=== PATIENT | male | born 1985 | race Caucasian/White ===

== ENCOUNTER 2017-11-22 08:33 | Day surgery (SDC) | payer BC ==
[~2017-11-22 08:33] MED LIST: Aloe Vera/Sodium Chloride Gel 14.1 GM Tube ONE; Bupivacaine 25%/EPINEPHrine/PF 30 ML ONE; Lactated Ringers 1,000 ML IV SCH; Lidocaine 1% 20 ML MDV ONE; Oxymetazoline 0.05% Nasal Spray 15 ML Bottle ONE
--- NOTE | 2017-11-22 09:10 | PCM.PREANE ---
Preanesthetic Assessment - Anesthesia/Transfusion/Family Hx Anesthesia History: No Prior Anesthesia Family History of Anesthesia Reaction: No Transfusion History: No Prior Transfusion(s) - Review of Systems General: No Symptoms Pulmonary: No Symptoms Cardiovascular: No Symptoms Gastrointestinal: No Symptoms Neurological: No Symptoms Other: Reports: None - Physical Assessment NPO Status Date: 11/21/17 Height: 1.75 m Weight: 103.419 kg ASA Class: 2 Mental Status: Alert & Oriented x3 Airway Class: Mallampati = 1 Dentition: Reports: Normal Dentition ROM/Head Extension: Full Lungs: Clear to Auscultation, Normal Respiratory Effort Cardiovascular: Regular Rate, Regular Rhythm - Allergies Allergies/Adverse Reactions: Allergies Allergy/AdvReac Type Severity Reaction Status Date / Time tetanus toxoid, adsorbed Allergy Swelling Verified 11/21/17 13:49 - Blood Blood Available: Yes - Anesthesia Plan Pre-Op Medication Ordered: None - Acknowledgements Anesthesia Type Planned: General Anesthesia Pt an Appropriate Candidate for the Planned Anesthesia: Yes Alternatives and Risks of Anesthesia Discussed w Pt/Guardian: Yes Pt/Guardian Understands and Agrees with Anesthesia Plan: Yes PreAnesthesia Questionnaire HEENT History: Reports: Allergic Rhinitis Gastrointestinal History: Reports: GERD Other Gastrointestinal History: not for the last year Musculoskeletal History: Reports: Arthritis, Fracture Other Musculoskeletal History: hx of fx toe Endocrine/Metabolic History: Reports: Obesity/BMI 30+ - Past Surgical History GI Surgical History: Reports: None - SUBSTANCE USE Smoking Status *Q: Never Smoker Recreational Drug Use History: No - HOME MEDS Home Medications: Home Meds . [No Known Home Meds] 11/21/17 [History] - CURRENT (IN HOUSE) MEDS Current Meds: Current Medications Lactated Ringer's (Ringers, Lactated) 1,000 mls @ 100 mls/hr IV ASDIRECTED NANCY Discontinued Medications Bupivacaine HCl/Epinephrine Bitart (Sensorc Mpf 0.25%-Epi 1:[id number]) Confirm Administered Dose 30 mls @ as directed .ROUTE .STK-MED ONE Stop: 11/22/17 07:16 Lidocaine HCl (Xylocaine 1%) Confirm Administered Dose 20 ml .ROUTE .STK-MED ONE Stop: 11/22/17 07:16 Oxymetazoline HCl (Afrin Original 0.05% Nasal [place]) Confirm Administered Dose 15 ml .ROUTE .STK-MED ONE Stop: 11/22/17 07:15 Sodium Chloride ([place] Saline Nasal Gel) Confirm Administered Dose 14.1 gm .ROUTE .[facility] ONE Stop: 11/22/17 07:16
[2017-11-22] MEDS ORDERED: fentaNYL 250 MCG/5 ML SDV ONE (09:51)
[2017-11-22] MEDS ORDERED: Midazolam 1 MG/ML 2 ML SDV ONE (09:51)
[2017-11-22] MEDS ORDERED: Propofol 200 MG/20 ML SDV ONE ×3 (09:52→10:01)
[2017-11-22] MEDS ORDERED: Dexamethasone 4 MG/ML 5 ML MDV ONE (09:54)
[2017-11-22] MEDS ORDERED: Rocuronium 10 MG/ML 10 ML Syringe ONE (09:54)
[2017-11-22] MEDS ORDERED: Phenylephrine/Normal Saline 100 MCG/ML 10 ML Syringe ONE (09:54)
[2017-11-22] MEDS ORDERED: Ondansetron 4 MG/2 ML SDV ONE (09:54)
--- NOTE | 2017-11-22 10:39 | PCM.HPR ---
H & P Addendum review - H & P Addendum Review Date of Original H & P: 10/24/17 Date Reviewed: 11/22/17 Time Reviewed: 10:25 Patient was Examined: No Changes
[2017-11-22] MEDS ORDERED: Sugammadex Sodium 200 MG/2 ML VIAL ONE (11:39)
[2017-11-22] MEDS ORDERED: HYDROmorphone 2 MG/ML SDV IVPUSH ONE (12:02)
[2017-11-22] MEDS ORDERED: Acetaminophen 325 MG Tab PO PRN (12:24)
[2017-11-22] MEDS ORDERED: Ibuprofen 800 MG Tab PO PRN (12:24)
--- NOTE | 2017-11-22 12:37 | PCM.OPNOTE ---
- General Post-Op/Procedure Note Date of Surgery/Procedure: 11/22/17 Operative Procedure(s): Uvulectomy [ CPT 68649] ,coblation reduction of manjit infreior turbinates [CPT 68050] Findings: Manjit inferior tubinates hypertrophied; nasal mucosa congested ++; elongated uvula ++ Pre Op Diagnosis: elongated uvula, hypertrophy of inferior turbinates, rhinitis Post-Op Diagnosis: Same Anesthesia Technique: General ET Tube Primary Surgeon: Kirstin Moreno Anesthesia Provider: Michael Snow EBL in mLs: 10 Condition: Good Free Text/Narrative:: Intake & Output 11/21/17 11/22/17 11/22/17 22:59 06:59 14:59 Intake Total 1100 Balance 1100 An informed consent was obtained. A time out was performed and the patient was brought back to the operating room. Gen. anesthesia was administered with an endotracheal tube. Patient was appropriately positioned on the operating table. An appropriately sized Ana Kieran mouth gag was positioned and suspended with a Colindres stand. The base of Uvula was infiltraed with 0.25% of Marcaine w 1: 100 000 epinephrine - 1 m was used. With a needle point bovie at a setting of 15W uvula was excised leaving a few mm at the base. hemostasis was achieved. Mucosa was sutured with 3.0 vicryl. Turbinate reduction was then performed. A 0 degree rigid nasal endoscope was used to examine bilateral nasal cavities and photo documentation was obtained. Bilateral inferior turbinates were infilatrated with 1% lidocaine - 2 mls were injected on each side. The left inferior turbinate was addressed first. A reflex 45 coblation wand with tip dipped in AYR Gel was used at setting of 6 :2 for Coblation and coagulation respectively. The point of entry was coagulated and wand was inserted till the third marking. Three lopez were created in the single channel. The inferior turbinate was visibly shrunk. Similar procedure was repeated on the right side with visible reduction in size of turbinates. Bilateral nasal cavities were then packed with oxymetazoline 0.05% soaked cottonoid pledgets. After an appropriate period of decongestion the pledgets were removed and hemostasis was achieved. Bacitracin oint was applied. Patient was handed over to anesthesia for recovery.
== END 2017-11-22 13:35 | disposition home or self-care (01) ==
LOC: MW.SDS 08:33
PROVIDERS: ATTEND Otolaryngology
DX: J34.3 Hypertrophy of nasal turbinates (principal); Q38.5 Congenital malformations of palate, not elsewhere classified; J30.9 Allergic rhinitis, unspecified; M19.90 Unspecified osteoarthritis, unspecified site; E66.9 Obesity, unspecified; J34.2 Deviated nasal septum; K21.9 Gastro-esophageal reflux disease without esophagitis; Z91.09 Other allergy status, other than to drugs and biological substances; Z68.33 Body mass index [BMI] 33.0-33.9, adult; Z88.7 Allergy status to serum and vaccine
CPT/HCPCS: 88304; A9270-GY; J1100; J2250; J2405; J2704; J3010; J3490; J7120

== ENCOUNTER 2019-04-02 17:25 | Emergency (ER) | payer BC ==
--- NOTE | 2019-04-02 17:36 | EDM.PDOC ---
ED HPI GENERAL MEDICAL PROBLEM - General Chief Complaint: Abdominal Pain Stated Complaint: STOMACH PAIN Time Seen by Provider: 04/02/19 17:33 Source of Information: Reports: Patient History Limitations: Reports: No Limitations - History of Present Illness INITIAL COMMENTS - FREE TEXT/NARRATIVE: HISTORY AND PHYSICAL: History of present illness: Patient is a 33-year-old male who presents to the emergency room with complaints of epigastric and right upper quadrant abdominal pain. He states over the past several months he has noticed upper abdominal pain after greasy high-fat foods. He states it will last for approximately 24 hours and resolve on its own. He is concerned he has "gallbladder issues" although has never been formally diagnosed or evaluated for this concern. He states he had moderate to severe pain prior to arrival but states it has "calm down now". Patient denies any fever, chills, headache, change in vision, syncope or near syncope. Denies any chest pain, back pain, shortness of breath or cough. Denies any nausea, vomiting, diarrhea, constipation or dysuria. Has not noted any blood in urine or stool. Patient has been eating and drinking appropriately. Review of systems: As per history of present illness and below otherwise all systems reviewed and negative. Past medical history: As per history of present illness and as reviewed below otherwise noncontributory. Surgical history: As per history of present illness and as reviewed below otherwise noncontributory. Social history: See social history for further information Family history: As per history of present illness and as reviewed below otherwise noncontributory. Physical exam: General: Well-developed and well-nourished 33-year-old male. Alert and oriented. Nontoxic appearing and in no acute distress. HEENT: Atraumatic, normocephalic, pupils equal and reactive bilaterally, negative for conjunctival pallor or scleral icterus, mucous membranes moist, TMs normal bilaterally, throat clear, neck supple, nontender, trachea midline. No drooling or trismus noted. No meningeal signs. No hot potato voice noted. Lungs: Clear to auscultation, breath sounds equal bilaterally, chest nontender. Heart: S1S2, regular rate and rhythm without overt murmur Abdomen: Soft, nondistended, nontender. Negative for masses or hepatosplenomegaly. Negative for costovertebral tenderness. Pelvis: Stable nontender. Skin: Intact, warm, dry. No lesions or rashes noted. Extremities: Atraumatic, moves all extremities per self without difficulty or deficits, negative for cords or calf pain. Neurovascular unremarkable. Neuro: Awake, alert, oriented. Cranial nerves II through XII unremarkable. Cerebellum unremarkable. Motor and sensory unremarkable throughout. Exam nonfocal. Notes: Lab work is unremarkable. Ultrasound of the gallbladder and epigastric/right upper quadrant is within normal limits. I did discuss with patient that he needs to follow-up with the general surgeon for further evaluation and management. Supportive care measures were reviewed and discussed. Voices understanding and is agreeable to plan of care. Denies any further questions or concerns at this time. Diagnostics: CBC, CMP, UA, Lipase Therapeutics: NS Prescription: None Impression: Abdominal Pain, epigastric Plan: 1. Your lab work and ultrasound are normal. Adhere to a low fat diet (avoiding fast food/greasy foods/high fat diary etc...) 2. Tylenol and/or ibuprofen as needed for pain management. 3. Follow-up with general surgeon for further care and management. Return to the ED as needed and as discussed. Definitive disposition and diagnosis as appropriate pending reevaluation and review of above. - Related Data Allergies Allergy/AdvReac Type Severity Reaction Status Date / Time tetanus toxoid, adsorbed Allergy Swelling Verified 04/02/19 17:56 Home Meds: Home Meds . [No Known Home Meds] 11/21/17 [History] Past Medical History HEENT History: Reports: Allergic Rhinitis Gastrointestinal History: Reports: GERD Other Gastrointestinal History: not for the last year Musculoskeletal History: Reports: Arthritis, Fracture Other Musculoskeletal History: hx of fx toe Endocrine/Metabolic History: Reports: Obesity/BMI 30+ - Past Surgical History GI Surgical History: Reports: None ED ROS GENERAL - Review of Systems Review Of Systems: ROS reveals no pertinent complaints other than HPI. ED EXAM, RENAL/ - Physical Exam Exam: See Below (See dictation) Course - Vital Signs Last Recorded V/S: Last Vital Signs Temp 98.0 F 04/02/19 17:55 Pulse 77 04/02/19 17:55 Resp 18 04/02/19 17:55 BP 136/85 04/02/19 17:55 Pulse Ox 97 04/02/19 17:55 - Orders/Labs/Meds Orders: Active Orders 24 hr Category Date Time Status Sodium Chloride 0.9% [Saline Flush] Med 04/02/19 17:37 Active 10 ml FLUSH ASDIRECTED PRN Sodium Chloride 0.9% [Saline Flush] Med 04/02/19 17:37 Active 2.5 ml FLUSH ASDIRECTED PRN Saline Lock Insert [OM.PC] Stat Oth 04/02/19 17:37 Ordered Medication Orders Sodium Chloride (Saline Flush) 10 ml FLUSH ASDIRECTED PRN PRN Reason: Keep Vein Open Sodium Chloride (Saline Flush) 2.5 ml FLUSH ASDIRECTED PRN PRN Reason: Keep Vein Open Labs: Laboratory Tests 04/02/19 04/02/19 Range/Units 18:15 18:15 WBC 7.61 (4.0-11.0) K/uL RBC 4.87 (4.50-5.90) M/uL Hgb 15.3 (13.0-17.0) g/dL Hct 42.6 (38.0-50.0) % MCV 87.5 (80.0-98.0) fL MCH 31.4 (27.0-32.0) pg MCHC 35.9 (31.0-37.0) g/dL RDW Std Deviation 39.9 (28.0-62.0) fl RDW Coeff of Aditi 12 (11.0-15.0) % Plt Count 231 (150-400) K/uL MPV 10.50 (7.40-12.00) fL Neut % (Auto) 43.4 L (48.0-80.0) % Lymph % (Auto) 33.6 (16.0-40.0) % [place] % (Auto) 6.0 (0.0-15.0) % Eos % (Auto) 16.6 H (0.0-7.0) % Baso % (Auto) 0.4 (0.0-1.5) % Neut # (Auto) 3.3 (1.4-5.7) K/uL Lymph # (Auto) 2.6 H (0.6-2.4) K/uL [place] # (Auto) 0.5 (0.0-0.8) K/uL Eos # (Auto) 1.3 H (0.0-0.7) K/uL Baso # (Auto) 0.0 (0.0-0.1) K/uL Nucleated RBC % 0.0 /100WBC Nucleated RBCs # 0 K/uL Sodium 143 (136-148) mmol/L Potassium 3.9 (3.5-5.1) mmol/L Chloride 105 (98-107) mmol/L Carbon Dioxide 25.9 (21.0-32.0) mmol/L BUN 12 (7.0-18.0) mg/dL Creatinine 1.1 (0.8-1.3) mg/dL Est Cr Clr Drug Dosing 93.73 mL/min Estimated GFR (MDRD) > 60.0 ml/min Glucose 85 (74-106) mg/dL Calcium 9.2 (8.5-10.1) mg/dL Total Bilirubin 0.6 (0.2-1.0) mg/dL AST 23 (15-37) IU/L ALT 43 (14-63) IU/L Alkaline Phosphatase 81 (46-116) U/L Total Protein 8.1 (6.4-8.2) g/dL Albumin 4.3 (3.4-5.0) g/dL Globulin 3.8 (2.6-4.0) g/dL Albumin/Globulin Ratio 1.1 (0.9-1.6) Lipase 108 (73-393) U/L Meds: Medications Generic Name Dose Route Start Last Admin Trade Name Fiona PRN Reason Stop Dose Admin Sodium Chloride 10 ml 04/02/19 17:37 Saline Flush FLUSH ASDIRECTED PRN Keep Vein Open Sodium Chloride 2.5 ml 04/02/19 17:37 Saline Flush FLUSH ASDIRECTED PRN Keep Vein Open Discontinued Medications Generic Name Dose Route Start Last Admin Trade Name Frebaron PRN Reason Stop Dose Admin Sodium Chloride 1,000 mls @ 999 mls/hr 04/02/19 17:37 04/02/19 18:19 Normal Saline IV 04/02/19 18:37 999 mls/hr STAT ONE Administration Departure - Departure Time of Disposition: 19:00 Disposition: Home, Self-Care 01 Clinical Impression: Abdominal pain Qualifiers: Abdominal location: epigastric Qualified Code(s): R10.13 - Epigastric pain - Discharge Information Instructions: Abdominal Pain, Adult, [id number] Referrals: PCP,Unknown [Primary Care Provider] - Forms: ED Department Discharge Additional Instructions: The following information is given to patients seen in the emergency department who are being discharged to home. This information is to outline your options for follow-up care. We provide all patients seen in our emergency department with a follow-up referral. The need for follow-up, as well as the timing and circumstances, are variable depending upon the specifics of your emergency department visit. If you don't have a primary care physician on staff, we will provide you with a referral. We always advise you to contact your personal physician following an emergency department visit to inform them of the circumstance of the visit and for follow-up with them and/or the need for any referrals to a consulting specialist. The emergency department will also refer you to a specialist when appropriate. This referral assures that you have the opportunity for follow-up care with a specialist. All of these measure are taken in an effort to provide you with optimal care, which includes your follow-up. Under all circumstances we always encourage you to contact your private physician who remains a resource for coordinating your care. When calling for follow-up care, please make the office aware that this follow-up is from your recent emergency room visit. If for any reason you are refused follow-up, please contact the [facility] Emergency Department at and asked to speak to the emergency department charge nurse. [facility] [address] [place] [address] [address] [facility] - General Surgery Professional Building [address] [place] [address], [address] [place] [address] 1. Adhere to a low fat diet (avoiding fast food/greasy foods/high fat diary etc...) 2. Tylenol and/or ibuprofen as needed for pain management. 3. Follow-up with general surgeon for further care and management. Return to the ED as needed and as discussed. - My Orders Last 24 Hours: My Active Orders 04/02/19 17:37 Sodium Chloride 0.9% [Saline Flush] 10 ml FLUSH ASDIRECTED PRN Sodium Chloride 0.9% [Saline Flush] 2.5 ml FLUSH ASDIRECTED PRN Saline Lock Insert [OM.PC] Stat - Assessment/Plan Last 24 Hours: My Active Orders 04/02/19 17:37 Sodium Chloride 0.9% [Saline Flush] 10 ml FLUSH ASDIRECTED PRN Sodium Chloride 0.9% [Saline Flush] 2.5 ml FLUSH ASDIRECTED PRN Saline Lock Insert [OM.PC] Stat
[2019-04-02] MEDS ORDERED: Sodium Chloride 0.9% 10 ML Syringe FLUSH PRN (17:37)
[2019-04-02] MEDS ORDERED: Sodium Chloride 0.9% 1,000 ML IV ONE (17:37)
[2019-04-02] MEDS ORDERED: Sodium Chloride 0.9% 2.5 ML Syringe FLUSH PRN (17:37)
[2019-04-02 18:49] LABS: BLOOD UREA NITROGEN,BUN 12 mg/dL (7.0-18.0); CARBON DIOXIDE,CO2 25.9 mmol/L (21.0-32.0); CHLORIDE,CL 105 mmol/L (98-107); GLUCOSE RANDOM 85 mg/dL (74-106); LIPASE 108 U/L (73-393); POTASSIUM,K 3.9 mmol/L (3.5-5.1); SODIUM,NA 143 mmol/L (136-148)
--- NOTE | 2019-04-02 18:55 | US ---
INDICATION: Right upper quadrant pain for a few years, worse over 2 months TECHNIQUE: Ultrasound abdomen limited. Sonographic images of the right upper quadrant were obtained using levin-scale and color Doppler images. COMPARISON: None FINDINGS: Liver: The liver parenchyma is normal in echotexture. Gallbladder: No gallstones or sludge seen in the contracted lumen. The gallbladder wall is normal in appearance. No pericholecystic fluid is present. No sonographic [place] sign is present. Common bile duct: 3 mm. No intrahepatic biliary ductal dilatation seen. Pancreas: The visualized portions of the pancreatic head and body are normal in appearance. Right Kidney: 10 cm. No hydronephrosis or ureterectasis is seen. Vascular: Proximal abdominal aorta and IVC are normal in caliber. IMPRESSION: 1. The gallbladder is contracted and difficult to evaluate. Dictated by Dale Angulo MD @ 04/02/2019 6:53:19 PM Dictated by: Dale Angulo MD @ 04/02/2019 18:53:24 (Electronically Signed)
== END 2019-04-02 19:15 | disposition home or self-care (01) ==
LOC: MW.ED 17:25
DX: R10.13 Epigastric pain (principal); R10.11 Right upper quadrant pain; E66.9 Obesity, unspecified; Z68.34 Body mass index [BMI] 34.0-34.9, adult; Z88.7 Allergy status to serum and vaccine
CPT/HCPCS: 76705; 80053; 83690; 85025; 96360; 99284; J7040

== ENCOUNTER 2019-04-29 09:06 | Day surgery (SDC) | payer BC ==
[~2019-04-29 09:06] MED LIST changes: -Aloe Vera/Sodium Chloride Gel 14.1 GM Tube ONE; -Bupivacaine 25%/EPINEPHrine/PF 30 ML ONE; -Lidocaine 1% 20 ML MDV ONE; +Lidocaine 2% 5 ML SDV ONE; +Midazolam 1 MG/ML 2 ML SDV ONE; -Oxymetazoline 0.05% Nasal Spray 15 ML Bottle ONE; +Propofol 200 MG/20 ML SDV ONE; +fentaNYL 100 MCG/2 ML SDV ONE
--- NOTE | 2019-04-29 09:43 | PCM.PREANE ---
Preanesthetic Assessment - Anesthesia/Transfusion/Family Hx Anesthesia History: Prior Anesthesia Without Reaction Family History of Anesthesia Reaction: No Transfusion History: No Prior Transfusion(s) - Review of Systems General: No Symptoms Pulmonary: No Symptoms Cardiovascular: No Symptoms Gastrointestinal: No Symptoms Neurological: No Symptoms Other: Reports: None - Physical Assessment NPO Status Date: 04/28/19 Vital Signs: Last Vital Signs Temp 98.6 F 04/29/19 09:15 Pulse 68 04/29/19 09:15 Resp 16 04/29/19 09:15 BP 135/82 04/29/19 09:15 Pulse Ox 96 04/29/19 09:15 Height: 5 ft 9 in Weight: 106.594 kg ASA Class: 2 Mental Status: Alert & Oriented x3 Airway Class: Mallampati = 2 Dentition: Reports: Normal Dentition Thyro-Mental Finger Breadths: 3 Mouth Opening Finger Breadths: 3 ROM/Head Extension: Full Lungs: Clear to Auscultation, Normal Respiratory Effort Cardiovascular: Regular Rate, Regular Rhythm - Allergies Allergies/Adverse Reactions: Allergies Allergy/AdvReac Type Severity Reaction Status Date / Time tetanus toxoid, adsorbed Allergy Swelling Verified 04/25/19 16:19 - Acknowledgements Anesthesia Type Planned: MAC Pt an Appropriate Candidate for the Planned Anesthesia: Yes Alternatives and Risks of Anesthesia Discussed w Pt/Guardian: Yes Pt/Guardian Understands and Agrees with Anesthesia Plan: Yes PreAnesthesia Questionnaire HEENT History: Reports: Allergic Rhinitis, Other (See Below) Other HEENT History: wears glasses Cardiovascular History: Reports: None Respiratory History: Reports: None Gastrointestinal History: Reports: GERD Other Gastrointestinal History: not for the last year Genitourinary History: Reports: None Musculoskeletal History: Reports: Arthritis, Fracture Other Musculoskeletal History: hx of fx toe Neurological History: Reports: None Psychiatric History: Reports: None Endocrine/Metabolic History: Reports: Obesity/BMI 30+ Hematologic History: Reports: None Immunologic History: Reports: None Oncologic (Cancer) History: Reports: None Dermatologic History: Reports: None - Infectious Disease History Infectious Disease History: Reports: None - Past Surgical History Head Surgeries/Procedures: Reports: None HEENT Surgical History: Reports: Naso-Sinus Surgery (Turbinate reduction) Other HEENT Surgeries/Procedures: uvulectomy Cardiovascular Surgical History: Reports: None Respiratory Surgical History: Reports: None GI Surgical History: Reports: None Male Surgical History: Reports: None Endocrine Surgical History: Reports: None Neurological Surgical History: Reports: None Musculoskeletal Surgical History: Reports: None Oncologic Surgical History: Reports: None Dermatological Surgical History: Reports: None - SUBSTANCE USE Smoking Status *Q: Never Smoker Recreational Drug Use History: No - HOME MEDS Home Medications: Home Meds . [No Known Home Meds] 11/21/17 [History] - CURRENT (IN HOUSE) MEDS Current Meds: Current Medications Lactated Ringer's (Ringers, Lactated) 1,000 mls @ 125 mls/hr IV ASDIRECTED NANCY Discontinued Medications Fentanyl (Sublimaze) Confirm Administered Dose 100 mcg .ROUTE .STK-MED ONE Stop: 04/29/19 08:13 Lidocaine (Xylocaine-Mpf 2%) Confirm Administered Dose 5 ml .ROUTE .STK-MED ONE Stop: 04/29/19 08:12 Midazolam HCl (Versed 1 Mg/Ml) Confirm Administered Dose 2 mg .ROUTE .STK-MED ONE Stop: 04/29/19 08:13 Propofol (Diprivan 20 Ml) Confirm Administered Dose 400 mg .ROUTE .STK-MED ONE Stop: 04/29/19 08:13
--- NOTE | 2019-04-29 10:05 | PCM.OPNOTE ---
- General Post-Op/Procedure Note Date of Surgery/Procedure: 04/29/19 Operative Procedure(s): Esophagogastroduodenoscopy with gastric and esophageal biopsies Pre Op Diagnosis: Epigastric and right upper quadrant pain. Post-Op Diagnosis: Moderate acute and chronic gastritis. Distal esophagitis. Anesthesia Technique: MAC (ASA II) Primary Surgeon: Sree Herrera Condition: Good Free Text/Narrative:: DICTATION 191693 CPT CODE 18077
[2019-04-29] MEDS ORDERED: Lactated Ringers 1,000 ML IV SCH (10:15)
--- NOTE | 2019-04-29 10:29 | OR ---
SURGEON: Sree Herrera M.D. DATE OF PROCEDURE: 04/29/2019 OPERATION PERFORMED: Esophagogastroduodenoscopy with gastric and esophageal biopsies. PRIMARY SURGEON: Sree Herrera M.D. ANESTHESIA: MAC. ASA CLASSIFICATION: II. PREOPERATIVE DIAGNOSES: 1. Persistent epigastric and right upper quadrant pain. 2. Fatty food intolerance. POSTOPERATIVE DIAGNOSIS: Moderate acute gastritis and distal esophagitis. DESCRIPTION OF PROCEDURE: The patient was taken to the endoscopy room and positioned on the endoscopy table in the supine position. Time-out was called for appropriate identification of the patient and procedure. Monitored anesthesia care was provided. The bite block was placed between the patient's teeth. The gastroscope was inserted through the bite block into the oropharynx and advanced without difficulty through the esophagus and stomach into the duodenum where examination was now carried out in a retrograde fashion. The duodenum shows no acute inflammatory changes or ulcerations. The stomach does show a moderate acute on chronic gastritis. Antral biopsies were obtained to look for the presence of Helicobacter pylori. The gastroscope was then retroflexed to visualize the proximal stomach. The greater and lesser curvatures showed no tumors or polyps. No ulcers were noted. The fundus of the stomach is clear. No significant hiatal hernia was noted. The gastroscope was then straightened and slowly withdrawn again carefully visualizing both the greater and lesser curvatures. No acute ulcerations are noted. No significant hiatal hernia was noted. The patient does have moderate distal esophagitis with erosions and separate biopsies of this area were taken. The esophagus itself demonstrates good contractility. The mid and proximal esophagus show good motility. The vocal cords were briefly visualized as the scope was withdrawn and noted to move symmetrically. The gastroscope was then removed with the patient having tolerated the procedure well. He was taken to recovery room in stable condition. ERASMO / SHRAVAN /[id number]
--- NOTE | 2019-04-29 10:36 | PCM.POSTAN ---
POST ANESTHESIA ASSESSMENT - MENTAL STATUS Mental Status: Alert, Oriented - VITAL SIGNS Vital Signs: Last Vital Signs Temp 97.5 F 04/29/19 10:21 Pulse 72 04/29/19 10:21 Resp 16 04/29/19 10:21 BP 129/66 04/29/19 10:21 Pulse Ox 95 04/29/19 10:21 - RESPIRATORY Respiratory Status: Respiratory Rate WNL, Airway Patent, O2 Saturation Stable - CARDIOVASCULAR CV Status: Pulse Rate WNL, Blood Pressure Stable - GASTROINTESTINAL GI Status: No Symptoms - POST OP HYDRATION Hydration Status: Adequate & Stable
--- NOTE | 2019-04-29 10:37 | PCM48HPAN ---
Post Anesthesia Note - EVALUATION WITHIN 48HRS OF ANESTHETIC Vital Signs in Normal Range: Yes Patient Participated in Evaluation: Yes Respiratory Function Stable: Yes Airway Patent: Yes Cardiovascular Function Stable: Yes Hydration Status Stable: Yes Pain Control Satisfactory: Yes Nausea and Vomiting Control Satisfactory: Yes Mental Status Recovered: Yes Vital Signs: Last Vital Signs Temp 97.5 F 04/29/19 10:21 Pulse 72 04/29/19 10:21 Resp 16 04/29/19 10:21 BP 129/66 04/29/19 10:21 Pulse Ox 95 04/29/19 10:21
== END 2019-04-29 10:43 | disposition home or self-care (01) ==
LOC: MW.SDS 09:06
PROVIDERS: ATTEND Surgery
DX: K29.50 Unspecified chronic gastritis without bleeding (principal); K20.9 Esophagitis, unspecified; K90.49 Malabsorption due to intolerance, not elsewhere classified; M19.90 Unspecified osteoarthritis, unspecified site; J30.2 Other seasonal allergic rhinitis; B96.81 Helicobacter pylori [H. pylori] as the cause of diseases classified elsewhere; E66.9 Obesity, unspecified; Z88.7 Allergy status to serum and vaccine; Z68.34 Body mass index [BMI] 34.0-34.9, adult
CPT/HCPCS: 43239; J2001; J2250; J2704; J3010; J7120

== ENCOUNTER 2022-04-26 14:14 | Emergency (ER) | payer SELFPAY ==
[2022-04-26] MEDS ORDERED: Lidocaine 1% PF 2 ML SDV INJECT ONE ×2 (14:38→15:26)
[2022-04-26] MEDS ORDERED: Lidocaine 1% 2 ML ONE (15:21)
== END 2022-04-26 16:58 | disposition home or self-care (01) ==
LOC: MW.ED 14:14
DX: S61.215A Laceration without foreign body of left ring finger without damage to nail, initial encounter (principal); E66.9 Obesity, unspecified; Z68.35 Body mass index [BMI] 35.0-35.9, adult; Z88.7 Allergy status to serum and vaccine; W27.0XXA Contact with workbench tool, initial encounter
CPT/HCPCS: 12001; 73140-26-F3; 73140-F3; 99283